=== PATIENT | female | born 1960 | race Caucasian/White ===

== ENCOUNTER 2024-11-02 17:39 | Emergency (ER) | payer OTHER, SELFPAY ==
--- NOTE | 2024-11-02 17:48 | ED.ANIMALBIT ---
HPI - Animal Bite General Chief Complaint: Animal Bite Stated Complaint: Dog bite L hand, lac to index finger (stem cutter) Time Seen by Provider: 11/02/24 17:43 Source: patient and EMS Mode of arrival: EMS Limitations: no limitations History of Present Illness ED Provider: DAVIAN OCHOA PA-C HPI narrative: 64 year old female presents to the ED today for evaluation s/p dog bite occurring 30 mins [employer]. 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 She sustained a dog bite to her left hand today while attempting to place a dog on the grooming table. The dog did not tug/ pull. She did not sustain any other injuries. She was informed that the dog is UTD on vaccinations, including rabies. She is UTD on tetanus. Related Data Previous Rx's ?Medication ?Instructions ?Recorded amoxicillin 875 mg-potassium 1 tab PO Q12H 10 days #20 tabs 11/02/24 clavulanate 125 mg tablet Allergies Allergy/AdvReac Type Severity Reaction Status Date / Time cimetidine (From Tagamet) Allergy Unknown Verified 11/02/24 18:09 tetracycline Allergy Unknown Verified 11/02/24 18:09 potassium iodide AdvReac Unknown Verified 11/02/24 18:09 Review of Systems Review of Systems: Yes all other systems are reviewed and are negative PMFSH Past Medical History Attestation statement: The following information was validated with the patient. Source: old records reviewed and nursing notes reviewed Physical Exam ED Vital Signs: Vital Signs - 24 hr 11/02/24 18:03 Temperature 97.6 F Pulse Rate 86 Respiratory Rate 18 Blood Pressure 135/85 Pulse Oximetry 97 Oxygen Delivery Method Room Air BMI result Body Mass Index 42.6 votal signs stable General: Well appearing, in no acute distress. Skin: See below Head: Normocephalic, atraumatic. EENT: Hearing is intact b/l. Conjunctiva clear. PERRLA. EOM intact. Moist mucous membranes.? Neck: Supple without LAD Lungs: Normal respiratory effort without accessory muscle use Ext: + 2x2 cm skin tear noted to dorsal aspect of left hand, no active bleeding. No involvement of deeper structures. There is also a 1 cm linear laceration noted to dorsal aspect of left index finger at PIP. No active bleeding. Full ROM intact to all digits. Smoke Room Operator strength intact. Small puncture wound noted to dorsal aspect of right 3rd digit at the base of the nail. No active bleeding. No involvement of deeper structures. Neuro: AOx3. Normal speech. Ambulating with steady gait. Course Course Course Narrative: Wounds washed out with saline and iodine. Loosely closed with Steri-Strips. Provided with a dose of Augmentin and Tylenol in the ED. She tells me her Tdap is already up-to-date. No indication for imaging at this time. Patient has remained stable throughout ED visit today. Discussed worrisome signs and symptoms and when to return to the ED. All questions answered at this time. Patient is agreeable with disposition and stable for discharge. Medical Decision Making Medical Decision Making MDM Narrative: 64 year old female presents to the ED today for evaluation s/p dog bite occurring [employer]. Vital signs stable. On exam, 2x2 cm skin tear noted to dorsal aspect of left hand, no active bleeding. No involvement of deeper structures. There is also a 1 cm linear laceration noted to dorsal aspect of left index finger at PIP. No active bleeding. Full ROM intact to all digits. Smoke Room Operator strength intact. Small puncture wound noted to dorsal aspect of right 3rd digit at the base of the nail. No active bleeding. No involvement of deeper structures. Differential diagnosis includes dog bite. unlikely fracture, cellulitis, osteomyelitis, abscess Plan for wash out, dressing, and discharge home on antibiotics. Differential Diagnosis Differential Diagnoses: The differential diagnosis associated with the presentation includes as above. Admission/Observation not indicated. Independent Historian Clinical information obtained from an independent historian. History obtained from or confirmed by: EMS Prescription Management I considered prescription management with: Pain Medication and Antibiotic (augmentin) Social Determinants Patient?s care significantly limited by Social Determinants of Health including: Other Social Determinant of Health Critical Care Time Critical Care Time Critical Care Time: No Discharge Plan Discharge Clinical Impression: Dog bite Patient Disposition: Home, Self-Care Instructions: Animal Bite (ED) Additional Instructions: You have been evaluated in the Emergency Department today for an animal bite to your left hand. Please keep the area surrounding the wounds clean and dry and watch closely for signs of infection. Augmentin is an antibiotic that has been sent to your pharmacy for treatment. On Augmentin, softer bowel movements are to be expected. Call your provider if you move your bowels more than 4 times a day, your bowel movements are almost all liquid, or you get a rash.? Please take the antibiotics prescribed to you in full, as directed. You may take tylenol/motrin as needed for pain. Please follow up with your primary care provider within two days. Return to the Emergency Department if you experience worsening or uncontrolled pain, spreading redness, fevers 100.4? or greater, pus from your bite, or for any other concerning symptoms. In the case of an emergency call 911. Prescriptions: New amoxicillin-pot clavulanate 875-125 mg tablet 1 tab PO Q12H 10 Days Qty: 20 0RF Print Language: South Korean
[2024-11-02 18:03] VITALS: BP 135/85; BP 190/102; PULSE 81; PULSE 86; RESP 18; TEMP 36.4; O2SAT 97; BMI 42.6
--- OUTSIDE RECORDS SUMMARY | 2024-11-02 18:34 | XMS_ITS | Encounter Summary ---
Author Organization [facility] Address [address] [place] [address] Care Team Providers Care Lead Generation Representative Name Role Phone Phil Aguirre MD Primary Care Provider Encounter Details Date Type Department Care Team (Late st Contact Info) Description 03/10/2020 Scanned Document [facility] PRIMARY CARE SCAN Primary Care, Scan Social History Tobacco Use Types Packs/Day Years Used Date Smoking Tobacco: Never Alcohol Use Standard Drinks/Week Comments No 0 (1 standard drink = 0.6 oz pur e alcohol) Comments No Sex and Gender Information Value Date Recorded Sex Assigned at Female 04/19/2023 8:41 AM EST Legal Sex Female 4:09 PM EDT Gender Identity Female 04/05/2021 9:20 AM EST Sexual Orientation Heterosexual (straight) 04/19 8:41 AM EST documented as of this encounter Plan of Treatment Not on file documented as of this encounter Visit Diagnoses Not on filedocumented in this encounter Care Teams Lead Generation Representative Relationship Specialty Start Date End Date Phil Aguirre MD PCP - General Family Medicine 12/01/15 documented as of this encounter
--- OUTSIDE RECORDS SUMMARY | 2024-11-02 18:34 | XMS_ITS ---
Author Name [facility] Organization Unknown Results Test Name/Text Value Interpretation Date Range Source UM. ALB/CREAT RATIO 3.0 Normal 04/01/2024 0 - 30 [facility] URINE CREATININE 183.0 mg/dL Normal 04/01/2024 60 - 200 [facility] URINE MICROALBUMIN <12 Normal 04/01/2024 0 - 23 [facility] URIC ACID 4.4 mg/dL Normal 01/24/2024 2.4 - 5.7 [facility] TSH 2.3 uIU/ml Normal 01/24/2024 0.5 - 4.8 [facility] CALCULATED OSMO 269.0 mOsm/kg Normal 01/24/2024 253 - 285 [facility] ANION GAP 12.0 Normal 01/24/2024 [facility] BUN/CREAT RATIO 18.0 Normal 01/24/2024 6 - 25 [facility] egfr 82.0 Normal 01/24/2024 - [facility] GLOBULIN 3.2 g/dl Normal 01/24/2024 1.4 - 4.8 [facility] A/G RATIO 1.0 Normal 01/24/2024 1 - 3 [facility] POTASSIUM 4.7 mmol/L Normal 01/24/2024 3.3 - 5.3 [facility] SODIUM 138.0 mmol/L Normal 01/24/2024 133 - 145 [facility] CHLORIDE 103.0 mmol/L Normal 01/24/2024 96 - 108 [facility] CREATININE 0.8 mg/dL Normal 01/24/2024 0.4 - 1.1 [facility] ALKALINE PHOSPHATASE 96.0 U/L Normal 01/24/2024 35 - 130 [facility] CALCIUM 9.9 mg/dL Normal 01/24/2024 8.6 - 10.5 [facility] ALT 20.0 U/L Normal 01/24/2024 4 - 33 [facility] BUN 14.0 mg/dL Normal 01/24/2024 8 - 23 [facility] TOTAL PROTEIN 7.1 g/dL Normal 01/24/2024 6.2 - 8.2 [facility] ALBUMIN 3.9 g/dl Normal 01/24/2024 3.5 - 5.2 [facility] AST 19.0 U/L Normal 01/24/2024 4 - 32 [facility] TOTAL BILIRUBIN 0.5 mg/dL Normal 01/24/2024 0.1 - 1 [facility] CO2 23.0 mmol/L Normal 01/24/2024 22 - 32 [facility] GLUCOSE 125.0 mg/dL Above high normal 01/24/2024 65 - 99 [facility] LYME SCREEN 0.25 index Normal 01/24/2024 - 0.9 [facility] BASO% 0.8 % Normal 01/24/2024 [facility] WBC 10.2 K/uL Normal 01/24/2024 3.6 - 11 [facility] HEMOGLOBIN 16.0 g/dL Above high normal 01/24/2024 11.5 - 15. 5 [facility] NRBC# 0.0 K/uL Normal 01/24/2024 [facility] MCHC 33.0 g/dl Normal 01/24/2024 31 - 35 [facility] EOS% 2.1 % Normal 01/24/2024 [facility] MONO% 6.6 % Normal 01/24/2024 [facility] MONO# 0.67 K/uL Normal 01/24/2024 0.2 - 1 [facility] MCV 94.0 fL Normal 01/24/2024 80 - 100 [facility] HEMATOCRIT 48.7 % Above high normal 01/24/2024 35 - 47 [facility] NEUT# 6.88 K/uL Normal 01/24/2024 1.5 - 7.8 [facility] PLT 314.0 K/uL Normal 01/24/2024 150 - 450 [facility] RDW-CV 12.7 % Normal 01/24/2024 12 - 16.1 [facility] RBC 5.2 M/uL Normal 01/24/2024 3.8 - 5.2 [facility] LYMPH% 22.6 % Normal 01/24/2024 [facility] MCH 31.0 pg Normal 01/24/2024 27 - 32 [facility] NEUT% 67.6 % Normal 01/24/2024 [facility] NRBC% 0.0 /100WBC Normal 01/24/2024 0 - 1 [facility] LYMPH# 2.3 K/uL Normal 01/24/2024 0.8 - 4.5 [facility] MPV 12.0 fL Normal 01/24/2024 9 - [address] [facility] Erythrocyte sedimentation rate 3.0 mm/HR Normal 01/24/2024 0 - 20 [facility] INFLUENZA B, PCR NEGATIVE Normal 11/13/2023 [facility] RSV, PCR NEGATIVE Normal 11/13/2023 [facility] INFLUENZA A, PCR NEGATIVE Normal 11/13/2023 [facility] SPECIMEN SOURCE: NARES Normal 11/13/2023 [facility] POC Glucose 114.0 mg/dL Above high normal 09/18/2023 65 - 99 [facility] POC Glucose 134.0 mg/dL Above high normal 09/18/2023 65 - 99 [facility] ALKALINE PHOSPATASE 267.0 Units/L Above high normal 03/12/19 24 40 - 129 [facility] TOTAL PROTEIN 6.9 g/dL Normal 03/12/2023 6.4 - 8.3 [facility] SGOT 252.0 Units/L Above high normal 03/12/2023 14 - 36 [facility] SGPT 570.0 Units/L Above high normal 03/12/2023 - 35 [facility] ALBUMIN 3.4 g/dL Below low normal 03/12/2023 3.5 - 5 [facility] GLOBULIN 3.5 g/dL Normal 03/12/2023 2.3 - 4.5 [facility] BILIRUBIN, TOTAL 6.8 mg/dL Above high normal 03/12/2023 0.2 - 1.3 [facility] A:G RATIO 0.97 Ratio Normal 03/12/2023 0.91 - 1.95 [facility] BILIRUBIN, CONJUGATED 3.3 mg/dL Above high normal 03/12/2023 0 - 0.3 [facility] GLUCOSE, FINGER STICK 123.0 mg/dL Normal 03/12/2023 65 - 135 [facility] History of Medication Use Medication Directions Dispensed Refills Start Date End Date Stat oxyCODONE-acetamino phen (PERCOCET) 5-325 mg per tablet Take 1 tablet by mouth as needed. 03/08/2023 active Cephalexin 500 MG Oral Capsule Cephalexin 500 MG Oral CapsuleTAKE 1 CAPSULE EVERY 12 HOURS UNTIL GONE. Quantity: 14 Refills: 0MaCitlaly french M.D. Start : [id number] 01/18/2023 completed bovivz-cghkqyutg-fa gnesium sulfates (Suprep Bowel Prep Kit) 17.5-3.13-1.6 GM/177ML Solution solution Take two 177 mL bottles as directed 04/05/2021 active spironolactone (ALDACTONE) 50 MG tablet Take 1 tablet (50 mg total) by mouth 2 (two) times a day. 03/19/2021 active Spiriva Respimat 1.25 MCG/ACT inhalation 01/17/2021 active Fluticasone Propionate 50 MCG/ACT Nasal Suspension Fluticasone Propionate 50 MCG/ACT Nasal SuspensionUSE 2 SPRAY(S) IN EACH NOSTRIL ONCE DAILY Quantity: 16 Refills: 3Cooper Phil Ny Start : [id number] 06/21/2020 completed Spiriva Respimat 1.25 MCG/ACT Inhalation Aerosol Solution Spiriva Respimat 1.25 MCG/ACT Inhalation Aerosol SolutionINHALE 2 PUFFS BY MOUTH DAILY Quantity: 60 Refills: 5[facility]oper [place] Ny Start : [id number] 04/29/2020 completed lisinopril (PRINIVIL,ZeSTRIL) 5 MG tablet Take 5 mg by mouth daily. 12/04/2019 active Meclizine HCl - 12.5 MG Oral Tablet Meclizine HCl - 12.5 MG Oral TabletTAKE 1 TABLET 3 TIMES DAILY NEEDED. Quantity: 30 Refills: Chandrakant Hazel PA-C Start : [id number] 06/30/2016 completed Furosemide 40 MG Oral Tablet Furosemide 40 MG Oral TabletTAKE 1 TABLET 3 times daily PRN Quantity: 90 Refills: Dolores Dougherty APRN Start : [id number] 08/20/2015 completed albuterol (PROVENTIL) (0.083%) 2.5 mg/3 mL nebulizer solution Take 3 mL (2.5 mg total) by nebulization 4 times daily (every 6 hours) as needed. active albuterol (PROVENTIL) (0.083%) 2.5 mg/3 mL nebulizer solution Take 1 vial by nebulization 4 times daily (every 6 hours) as needed. active fluticasone (FloNASE) 50 mcg/spray nasal spray as needed. active fluticasone (VERAMYST) 27.5 MCG/SPRAY nasal spray 2 sprays by Each Nare route daily. active furosemide (LASIX) 20 MG tablet Take 20 mg by mouth as needed. active lisinopril (PRINIVIL,ZeSTRIL) 10 MG tablet Take 5 mg by mouth daily. active montelukast (SINGULAIR) 10 MG tablet Take by mouth nightly. active montelukast (SINGULAIR) 10 MG tablet Take 10 mg by mouth nightly. active Allergies Allergen Reaction Severity Comment Documented Date Source Statu s SULFA ANTIBIOTICS RASH/DERMATITIS 03/14/[address] [facility] [address] active TETRACYCLINE RASH/[facility]MATITIS [facility]13[facility] CIMETIDINE RASH[facility]DERMATITIS [facility] IODINE RASH/DERMATITIS [facility] SULFA DRUGS URINARY RETENTION [facility] TAGAMET TABS OTHER [facility] TETRACYCLINES RASH [facility] Problems Problem Status Onset Date Problem Type Date of Resoluti on Source Carpal tunnel syndrome active 2015-08-27 ProblemAct [facility] Insomnia active ProblemAct [facility] Osteoarthritis of multiple joints active ProblemAct [facility] Biliary stricture active 2023-03-16 ProblemAct [facility] Hyperglycemia active ProblemAct [facility] Other hyperlipidemia active ProblemAct [facility] Asthma active ProblemAct [facility] Gastroesophageal reflux disease without esophagitis active ProblemAct [facility] Hypertension active ProblemAct [facility] Migraine active ProblemAct [facility] Obesity active ProblemAct [facility] NAHID on CPAP active ProblemAct [facility] Adenomatous polyp of colon active 2020-03-11 ProblemAct [facility] COPD (chronic obstructive pulmonary disease) active ProblemAct [facility] Shldr/upper arm inj NOS active 2015-08-27 ProblemAct [facility] Immunizations Vaccine Date Source Lot Number Status [id number] COVID-19 Vac c 30 MCG/0.3ML Intramuscular Suspension 02/21/2021 [facility] [id number] complet ed Flucelvax Quadrivalent 0.5 M L Intramuscular Suspension Prefilled Syringe 12/01/2020 [facility] [id number] com pleted Tdap (Adacel) 06/26/2020 [facility] completed Pfizer-BioNT COVID-19 Vac-Tr iS 30 MCG/0.3ML Intramuscular Suspension 06/10/2020 [facility] complet ed Pfizer-BioNT COVID-19 Vac-Tr iS 30 MCG/0.3ML Intramuscular Suspension 05/19/2020 [facility] complet ed Fluzone Quadrivalent 0.5 ML Intramuscular Suspension Prefilled Syringe 03/09/2020 [facility] com pleted Shingrix 50 MCG Intramuscula r Suspension Reconstituted 03/09/2020 [facility] completed Fluzone Quadrivalent 0.5 ML Intramuscular Suspension Prefilled Syringe 02/04/2019 [facility] [id number] com pleted Prevnar 13 Intramuscular Suspension 07/11/2018 [facility] [id number] completed Fluzone Quadrivalent 0.5 ML Intramuscular Suspension Prefilled Syringe 03/02/2017 [facility] [id number] com pleted Fluzone Quadrivalent 0.5 ML Intramuscular Suspension Prefilled Syringe 12/02/2015 [facility] [id number] com pleted Influenza 11/28/2013 [facility] completed Pneumococcal polysaccharide vaccine, 23 valent 11/28/2013 [facility] completed Tdap (Adacel) 11/18/2013 [facility] [id number] completed Influenza A (H1N1) Monoval Vac SUSP 01/20/2009 [facility] completed Tdap 08/22/2005 [facility] completed Encounters Encounter Type Encounter Reason Primary Diagnosis Location Date Emergency Rash and other nonspecific skin eruption Rash and other nonspecific skin eruption [facility] 10/25/2024 Ambulatory [facility] 05/30/2024 Ambulatory [facility] 05/08/2024 Ambulatory [facility] 03/31/2024 Ambulatory [facility] screen mammogram for malignant neoplasm of breast [facility] screen mammogram for malignant neoplasm of breast [facility] 03/22/2024 Ambulatory [facility] 02/19/2024 Ambulatory [facility] 01/23/2024 Ambulatory [facility] 01/23/2024 Ambulatory [facility] 01/22/2024 Ambulatory [facility] 12/14/2023 Ambulatory [facility] 12/07/2023 Ambulatory [facility] 11/14/2023 Emergency Pain in throat Pain in throat [facility] 11/13/2023 Ambulatory [facility] 11/13/2023 Ambulatory [facility] 10/16/2023 Ambulatory [facility] 10/16/2023 Emergency Pain in right knee Pain in right knee [facility] 09/21/2023 Ambulatory Obstruction of bile duct Obstruction of bile duct [email or web address] 09/18/2023 Ambulatory [facility] 09/17/2023 Ambulatory Unilateral primary osteoarthritis, right knee Unilateral primary osteoarthritis, right knee [facility] 09/11/2023 Ambulatory [facility] 09/11/2023 Ambulatory [facility] 09/11/2023 Ambulatory [facility] 07/16/2023 Ambulatory Obstruction of bile duct Obstruction of bile duct [email or web address] 06/27/2023 Emergency Abrasion of left forearm, initial encounter Abrasion of left forearm, initial encounter [facility] 05/23/2023 Ambulatory Other specified diseases of pancreas Other specified diseases of pancreas [email or web address] 04/19/2023 Ambulatory Obstruction of bile duct Obstruction of bile duct [email or web address] 03/29/2023 Ambulatory [facility] screen mammogram for malignant neoplasm of breast [facility] 03/21/2023 Ambulatory Gastro-esophageal reflux disease without esophagitis Gastro-esophageal reflux disease without esophagitis [email or web address] 03/14/2023 Ambulatory Calculus of gallbladder w/o cholecystitis w/o obstruction [facility] 03/12/2023 Ambulatory Cyst of pancreas [facility] 03/09/2023 Ambulatory Right upper quadrant pain [facility] 03/07/2023 Ambulatory Bunion of left foot [facility] Ambulatory [facility] 05/25/2022 Ambulatory [facility] 05/25/2022 Ambulatory [facility] 04/29/2021 Ambulatory Gastro-esophagea l reflux disease without esophagitis [email or web address] 04/05/2021 Care Team Organization Name Specialty Phone Email Start Date End [facility] 07/16/2024 [facility] 2023 [facility] 11/26/2023 [facility] 11/06/2023 [facility] 09/11[facility] 07/03/2023 12/12/2023 [facility] 03/25/2023 05/21/2024 [facility] 03/25/2023 [facility] PHIL RE[facility] Care 023 07/18/2022 [facility] Primary Care 023 [facility] 05/26/2022 [facility] 05/24/2022 05/25/2022 [facility] 01/04/2022 [facility] 04/30/2021 10/22/2023 [facility] PHIL REYNA Primary Care 04/05/2021 025 [facility] 04/05/2021 09/26/2021 [facility] 202010/04/2021
--- OUTSIDE RECORDS SUMMARY | 2024-11-02 18:34 | XMS_ITS | Encounter Summary ---
Author Organization [facility] Address [address] [place] [address] Care Team Providers Care Ota Name Role Phone Phil Aguirre MD Primary Care Provider [phone] Encounter Details Date Type Department Care Team (Late st Contact Info) Description 09/26/2021 Scanned Document [facility] [address] [id number] [place] [address] [place] [id number] Social History Tobacco Use Types Packs/Day Years [...] on file documented as of this encounter Procedures Procedure Name Priority Date/Time Associated Diagnosis Comments HX GASTROENTEROLOGY COLONOSCOPY-SCAN 09/26/2021 9:17 AM EDT HX GASTROENTEROLOGY UPPER ENDOSCOPY-SCAN 09/26/2021 9:07 AM EDT HX GASTROENTEROLOGY UPPER ENDOSCOPY-SCAN 09/26/2021 9:07 AM EDT documented in this encounter Results * HX GASTROENTEROLOGY COLONOSCOPY-SCAN (09/26/2021 9:17 AM EDT) Ann Montanezi DO HX AMB PROCEDURES Final Resul t * HX GASTROENTEROLOGY UPPER ENDOSCOPY-SCAN (09/26/2021 9:07 AM EDT) us Ann Montanezi DO HX AMB PROCEDURES Final Resul t * HX GASTROENTEROLOGY UPPER ENDOSCOPY-SCAN (09/26/2021 9:07 AM EDT) us Ann Montanezi DO HX AMB PROCEDURES Final Resul t documented in this encounter Visit Diagnoses Not on filedocumented in this encounter Care Teams Ota Relationship Specialty Start Date End Date Phil Aguirre MD PCP - General Family Medicine 12/01/15 documented as of this encounter
--- OUTSIDE RECORDS SUMMARY | 2024-11-02 18:34 | XMS_ITS | Clinical Summary ---
Author Organization [facility] Address [address] [place] [address] Care Team Providers Care Miner Name Role Phone Unavailable Primary Care Provider Unavailabl e Allergies Active Allergy Reactions Criticality Noted Date Comments Cimetidine Rash Low 12/13/2015 Iodine Rash Low 12/13/2015 Sulfa (Sulfonamide Antibiotics) Tetracycline Rash Low 12/13/2015 Medications fluticasone (FLONASE) 50 mcg/actuation nasal spray 04/03/2018 Active furosemide (LASIX) 20 mg tablet Take 20 mg by mouth once daily as needed. Active mirtazapine (REMERON) 15 mg tablet 04/03/2018 Active montelukast (SINGULAIR) 10 mg tablet Take 10 mg by mouth daily. Active pantoprazole (PROTONIX) 40 mg EC tablet 04/18/2018 Active azithromycin (ZITHROMAX) 250 mg tablet TAKE 2 TABLETS BY MOUTH ON DAY 1, AND THEN TAKE 1 TABLET BY MOUTH ONCE A DAY ON DAY 2 THROUGH DAY 5 06/09/2022 Active albuterol 2.5 mg /3 mL (0.083 %) nebulizer solution Inhale 1 vial every 6 hours as needed. Active escitalopram (LEXAPRO) 20 mg tablet 07/14/2022 Active fluticasone propion-salmete roL (ADVAIR DISKUS) 250-50 mcg/dose diskus inhaler INHALE 1 DOSE BY MOUTH TWICE DAILY (RINSE MOUTH AFTER USE) 03/08/2020 Active hydrOXYzine (ATARAX) 50 mg tablet TAKE 1 TABLET BY MOUTH EVERY DAY AT BEDTIME NEEDED 06/23/2022 Active metFORMIN (GLUCOPHAGE) 500 mg tablet Take 500 mg by mouth in the morning and 500 mg in the evening. Take with meals. 06/06/2022 Active simvastatin (ZOCOR) 10 mg tablet Take 10 mg by mouth. 05/12/2022 Active spironolactone (ALDACTONE) 50 mg tablet Take 50 mg by mouth. 06/30/2022 Active Active Problems Problem Noted Date Diagnosed Date Severe obesity (BMI >= 40) 07/14/2022 Asthma 07/14/2022 Atypical squamous cells of u ndetermined significance (ASCUS) on Papanicolaou smear of cervix 07/14/2022 COPD (chronic obstructive pulmonary disease) 02/2023 Gastroesophageal reflux disease without esophagi tis 07/14/2022 Hyperglycemia 07/14/2022 Hypertension 07/14/2022 Insomnia 07/14/2022 NAHID on CPAP 07/14/2022 Osteoarthritis of multiple joints 07/14/2022 Other hyperlipidemia 07/14/2022 Positive test for human papillomavirus (HPV) 02/2023 Adenomatous polyp of colon 03/11/2020 Overview (07/14/2022): May 15, 2014 adenomatous polyp at 20 cm came back tubular adenoma 5-year follow-up Primary localized osteoarthritis of left knee Assessment & Plan (05/29/2018 10:17 AM EDT): I have counseled the patient regarding the risks, benefits, and possible side effects of Visco supplementation injection and the patient wish to proceed. There are no contraindications at this time. The patient tolerated the injection very well today. We have reiterated the intervals with which corticosteroid injection and Visco supplementation injection may be given. She will return as needed for any further intervention. We have discussed weight optimization. She states understanding agreement with the plan of care. Primary osteoarthritis of right knee 05/13/2018 Assessment & Plan (05/20/2018 9:59 AM EDT): I have counseled the patient regarding the risks, benefits, and possible side effects of Visco supplementation injection and the patient wish to proceed. There are no contraindications at this time. The patient tolerated the injection very well today. She will return 3 days or more for the left knee visco injection. Family History Medical History Relation Comments Heart attack Father Heart attack Mother Relation Status Comments Father Mother Alive Social History Tobacco Use Types Packs/Day Years Used Date Smoking Tobacco: Never Smokeless Tobacco: Never Alcohol Use Standard Drinks/Week Comments No 0 (1 standard drink = 0.6 oz pur e alcohol) Comments Unknown Sex and Gender Information Value Date Recorded Sex Assigned at Not on file Legal Sex Female 10:06 AM EST Gender Identity Not on file Sexual Orientation Not on file Last Filed Vital Signs Vital Sign Reading Time Taken Comments Blood Pressure 108/62 05/13/2018 9:45 AM EDT Pulse 56 05/13/2018 9:45 AM EDT Temperature - - Respiratory Rate - - Oxygen Saturation - - Inhaled Oxygen Concentration - - Weight 109 kg (240 lb) 05/13/2018 9:45 AM EDT Height 145.5 cm (4' 9.28 ) 05/13/2018 9:45 AM ED T Body Mass Index 51.42 05/13/2018 9:45 AM EDT Plan of Treatment Health Maintenance Due Date Last Done Comments Bone Density Screening 1958 Breast Cancer Screening 1958 CT Colonography 1958 Colonoscopy 1958 Colorectal Cancer Screening 1958 FIT-DNA (Cologuard) 1958 FIT 1958 FOBT 1960 Flex Sigmoidoscopy - 5y 1958 HIV Screening 1960 Hepatitis C Screening 1976 Pneumococcal Vaccine, 50+ Years (1 of 2 - PCV) 1977 COVID-19 Vaccine ( season) 2023 01/16/2022, 02/21/2021, 06/10/2020, Additional history exists Influenza Vaccine (#1) 2024 DTaP,Tdap,and Td Vaccines (2 - Td or Tdap) 06/26/2030 06/26/2020 Zoster Vaccines Completed 01/16/2022, 03/09/2020 HPV Vaccines Aged Out No longer eligi ble based on patient's age to complete this topic Hepatitis A Vaccines Aged Out No long er eligible based on patient's age to complete this topic MMR Vaccines Aged Out No longer eligi ble based on patient's age to complete this topic Meningococcal Vaccine Aged Out No odalis marin eligible based on patient's age to complete this topic Insurance MEDICAID [id number]
--- OUTSIDE RECORDS SUMMARY | 2024-11-02 18:34 | XMS_ITS | Encounter Summary ---
Author Organization [facility] Address [address] [place] [address] Care Team Providers Care Gambling Monitor Name Role Phone Phil Aguirre MD Primary Care Provider [phone] Encounter Details Date Type Department Care Team (Late st Contact Info) Description 09/20/[address] [facility] Orthopedic Surgery [address] [address] Social History Tobacco Use Types Packs/Day Years [...] on filedocumented in this encounter Care Teams Gambling Monitor Relationship Specialty Start Date End Date Phil Aguirre MD PCP - General Family Medicine 12/01/15 documented as of this encounter
--- OUTSIDE RECORDS SUMMARY | 2024-11-02 18:34 | XMS_ITS | Encounter Summary ---
Author Organization [facility] Address [address] [place] [address] Care Team Providers Care Drafter Mechanical Name Role Phone Phil Aguirre MD Primary Care Provider [phone] Reason for Visit * Reason Comments Medication Refill Encounter Details Date Type Department Care Team (Late st Contact Info) Description 06/11/2019 Refill [facility] Neu[facility] [address] [place] [address] Aguila Zuleta, [place] [address] Chronic intractable headache, unspecified headache type Social History Tobacco Use Types Packs/Day Years [...] documented as of this encounter Visit Diagnoses Diagnosis Chronic intractable headache, unspecified headache type documented in this encounter Care Teams Drafter Mechanical Relationship Specialty Start Date End Date Phil Aguirre MD PCP - General Family Medicine 9/28/16 documented as of this encounter
--- OUTSIDE RECORDS SUMMARY | 2024-11-02 18:34 | XMS_ITS | Clinical Summary ---
Author Organization [facility] Address [address] [place] [address] Care Team Providers Care Conciliation Court Judge Name Role Phone Phil Aguirre MD Primary Care Provider Allergies Active Allergy Reactions Criticality Noted Date Comments Iodine Rash/Dermatitis Low 12/13/2015 Sulfa Antibiotics Rash/Dermatitis Low 03/14/2023 Cimetidine Rash/Dermatitis Low 12/13/2015 Tetracycline Rash/Dermatitis Low 12/13/2015 Medications furosemide (LASIX) 20 MG tablet Take 1 tablet (20 mg total) by mouth as needed. Active montelukast (SINGULAIR) 10 MG tablet Take by mouth nightly. Active PANTOprazole (PROTONIX) 40 MG EC tablet Take 1 tablet (40 mg total) by mouth 2 times a day. 0 Active albuterol (PROVENTIL) (0.083%) 2.5 mg/3 mL nebulizer solution Take 3 mL (2.5 mg total) by nebulization 4 times daily (every 6 hours) as needed. Active simvastatin (ZOCOR) 10 MG tablet nightly. 1 Active spironolactone (ALDACTONE) 50 MG tablet Take 1 tablet (50 mg total) by mouth 2 (two) times a day. 2 Active albuterol (PROVENTIL HFA; VENTOLIN HFA) 108 (90 Base) MCG/ACT inhaler Inhale 2 puffs 4 times daily (every 6 hours) as needed for wheezing. Active escitalopram (LEXAPRO) 20 MG tablet Take by mouth nightly. 3 Active metFORMIN (GLUCOPHAGE) 500 MG tablet Take 1 tablet (500 mg total) by mouth 2 (two) times a day with meals. 4 Active hydrOXYzine HCl (ATARAX) 50 MG tablet Take 1 tablet (50 mg total) by mouth nightly as needed. 3 Active traZODone (DESYREL) 100 MG tablet TAKE 1 TO 3 TABLETS BY MOUTH AT BEDTIME 3 Active fluticasone (FloNASE) 50 mcg/spray nasal spray as needed. Active Active Problems Problem Noted Date Diagnosed Date Biliary stricture 03/16/2023 Adenomatous polyp of colon 03/11/2020 Overview (03/11/2020): May 15, 2014 adenomatous polyp at 20 cm came back tubular adenoma 5-year follow-up Hypertension Other hyperlipidemia Hyperglycemia NAHID on CPAP Obesity COPD (chronic obstructive pulmonary disease) Gastroesophageal reflux disease without esophagi tis Asthma Insomnia Osteoarthritis of multiple joints Migraine Resolved Problems Problem Noted Date Diagnosed Date Resolved Date Jaundice 03/13/2023 03/16/2023 Family History Medical History Relation Name Comments COPD Father Coronary artery disease Father Coronary artery disease Maternal Grandfather Stroke Maternal Grandmother Breast cancer Mother Coronary artery disease Mother Hypertension Mother Coronary artery disease Paternal Grandfather Relation Name Status Comments Father Maternal Grandfather Maternal Grandmother Mother Paternal Grandfather Social History Tobacco Use Types Packs/Day Years Used Date Smoking Tobacco: Never Tobacco Cessation:Counseling Given: Not Answered Alcohol Use Standard Drinks/Week Comments No 0 (1 standard drink = 0.6 oz pur e alcohol) AUDIT-C Answer Date Recorded Q1: How often do you have a drink containing alcohol? Never 09/07/2023 Q2: How many drinks containi ng alcohol do you have on a typical day when you are drinking? Patient does not drink Q3: How often do you have si x or more drinks on one occasion? Never 09/07/2023 Comments No Sex and Gender Information Value Date Recorded Sex Assigned at Female 04/19/2023 8:41 AM EST Legal Sex Female 4:09 PM EDT Gender Identity Female 04/05/2021 9:20 AM EST Sexual Orientation Heterosexual (straight) 04/19 8:41 AM EST Last Filed Vital Signs Vital Sign Reading Time Taken Comments Blood Pressure 135/73 09/18/2023 9:45 AM EDT Pulse 57 09/18/2023 9:50 AM EDT Temperature 36.2 C (97.1 F) 09/18/2023 9:50 AM EDT Respiratory Rate 18 09/18/2023 9:50 AM EDT Oxygen Saturation 96% 09/18/2023 9:50 AM EDT Inhaled Oxygen Concentration - - Weight 90.7 kg (200 lb) 09/07/2023 10:02 AM EDT Height 157.5 cm (5' 2 ) 09/07/2023 10:02 AM EDT Body Mass Index 36.58 09/07/2023 10:02 AM EDT Plan of Treatment Health Maintenance Due Date Last Done Comments Advance Care Planning 1960 Hepatitis C Virus Screening 1960 DTaP/Tdap/Td Vaccines (1 - Tdap) 1977 Pneumococcal Vaccines 50+ (1 of 2 - PCV) 1977 Mammogram 1998 Zoster (Shingles) Vaccine (1 of 2) 2008 RSV Vaccine 60 years and older and Patients (1 - Risk 60-74 years 1-dose series) 2018 DXA Bone Density (Females,Ages 65 and older) 2023 COVID-19 Vaccine ( season) 2023 01/16/2022, 02/21/2021, 06/10/2020, Additional history exists Influenza Vaccine 10/03/2024 01/03/2023, , 12/01/2020, Additional history exists Colonoscopy 09/27/2031 09/26/2021, 05/08/2014 Hepatitis B Vaccines Aged Out No long er eligible based on patient's age to complete this topic Medical Devices Implanted Type Area External Auditor Device Identifier Shelf Expiration Date Model / Serial / Lot [place] Suture 4.5mm Pushlock Shldr Peek 24mm Sterl Disp - [id number] Implanted:Qty: 3 on 05/05/2016 by Roddy Yanez MD at [facility] [place] [employer] [id number] 09/04/2020 AR-1922PS / / [place] Suture 6.5mm 2 Flthrd Crkscr Fbrwr 2 Peek Sterl Disp - [id number] Implanted:Qty: 2 on 05/05/2016 by Roddy Yanez MD at [facility] [place] [employer] [id number] 11/03/2020 AR-1927P [facility] 65 / / [id number] Stent Pancreatic 5fr 12cm Zmn Sterl Disp Pur - [id number] Implanted:Qty: 1 on 01/20/2016 by Nagi Loomis MD at [facility] Stent [employer] [id number] / / Stent Pancreatic 5fr 12cm Pgtl Crv Set Radiopaque Sprl Sh - [id number] Implanted:Qty: 1 on 02/24/2016 by Nagi Loomis MD at [facility] Stent [employer] [id number] / / Stent Pancreatic 8.5fr 10cm Pgtl Crv Tpr Tip Zmn Polyethe - [id number] Implanted:Qty: 1 on 07/06/2016 by Nagi Loomis MD at [facility] Stent [employer] [id number] / / Explanted Type Area External Auditor Device Identifier Shelf Expiration Date Model / Serial / Lot Stent Pancreatic 8.5fr 10cm Pgtl Crv Tpr Tip Zmn Polyethe - [id number] Implanted:Qty: 1 on 04/27/2016 by Nagi Loomis MD at [facility] Explanted:Qty: 1 on 07/06/2016 at [facility] Stent [employer] [id number] / / [id number] Stent Biliary Cotton-Panda 10fr 7cm Taper Tip Pstn Sleeve - [id number] Implanted:Qty: 1 on 03/14/2023 by Mina Reyes MD at [facility] Explanted:Qty: 1 on 06/27/2023 at [facility] Stent N/A: Bile Duct [employer] [id number] 12/13/2025 [id number] / / [id number] Stent Biliary Cotton-Panda 10fr 7cm Taper Tip Pstn Sleeve - [id number] Implanted:Qty: 1 on 07/03/2023 by Mina Reyes MD at [facility] Explanted:Qty: 1 on 09/18/2023 by Mina Reyes MD at [facility] Stent N/A: Bile Duct [employer] 04/11/2026 [id number] / / [id number] Stent Biliary Cotton-Panad 10fr 7cm Taper Tip Pstn Sleeve - [id number] Implanted:Qty: 1 on 07/03/2023 by Mina Reyes MD at [facility] Explanted:Qty: 1 on 09/18/2023 by Mina Reyes MD at [facility] Stent N/A: Bile Duct [employer] 05/07/2026 [id number] / / [id number] Procedures Procedure Name Priority Date/Time Associated Diagnosis Comments HX GASTROENTEROLOGY COLONOSCOPY-SCAN 09/26/2021 9:17 AM EDT from Last 3 Months or Most Recently Relevant to Health Maintenance Results * HX GASTROENTEROLOGY COLONOSCOPY-SCAN (09/26/2021 9:17 AM EDT) Ann Gutierrez DO HX AMB PROCEDURES Final Resul t from Last 3 Months or Most Recently Relevant to Health Maintenance Insurance [facility] Care Teams Conciliation Court Judge Relationship Specialty Start Date End Date Phil Aguirre MD PCP - General Family Medicine 12/01/15
--- OUTSIDE RECORDS SUMMARY | 2024-11-02 18:34 | XMS_ITS | Encounter Summary ---
Author Organization [facility] Address [address] [place] [address] Care Team Providers Care Platform Beater Name Role Phone Phil Aguirre MD Primary Care Provider Encounter Details Date Type Department Care Team (Late st Contact Info) Description 07/26/2017 Scanned Document [facility] Orthopedic Surgery [address] [address] Social History Tobacco Use Types [...] on filedocumented in this encounter Care Teams Platform Beater Relationship Specialty Start Date End Date Phil Aguirre MD PCP - General Family Medicine 12/01/15 documented as of this encounter
[2024-11-02 18:39] VITALS: BP 135/85; PULSE 86; RESP 18; TEMP 36.4; O2SAT 97
== END 2024-11-02 18:40 | disposition home or self-care (01) ==
PROVIDERS: Emergency Provider Student in an Organized Health Care Education/Training Program
DX: S61.211A Laceration without foreign body of left index finger without damage to nail, initial encounter (principal); W54.0XXA Bitten by dog, initial encounter; Y93.89 Activity, other specified; Y92.098 Other place in other non-institutional residence as the place of occurrence of the external cause; Y99.8 Other external cause status
CPT/HCPCS: 99283